=== PATIENT | male | born 1945 | race Caucasian/White ===

== ENCOUNTER 2017-05-19 10:17 | Day surgery (SDC) | payer MEDICARE ==
[~2017-05-19] VITALS: Ht 177.8 cm; Wt 78.4 kg
[2017-05-19 11:01] VITALS: BP 136/87
[2017-05-19] MEDS ORDERED: MELA5TAB19 PO (11:01)
[2017-05-19] MEDS ORDERED: WARF5TAB7 PO (11:01)
[2017-05-19] MEDS ORDERED: M-171CAP PO (11:01)
[2017-05-19] MEDS ORDERED: WARF7.5T6 PO (11:01)
[2017-05-19] MEDS ORDERED: MULT-658 PO (11:01)
[2017-05-19] MEDS ORDERED: ATOR20TA9 PO (11:01)
[2017-05-19] MEDS ORDERED: LACTATED RINGERS 1,000 ML IV SCH ×2 (11:01→14:47)
[2017-05-19] MEDS ORDERED: FENTANYL PF 250 MCG/5ML ONE (12:04)
[2017-05-19] MEDS ORDERED: PROPOFOL 10 MG/ML, 20ML ONE (12:04)
[2017-05-19] MEDS ORDERED: ROCURONIUM 10 MG/ML,10ML ONE (12:04)
[2017-05-19] MEDS ORDERED: NEOSTIGMINE 1 MG/ML, 10ML ONE (12:05)
[2017-05-19] MEDS ORDERED: GLYCOPYRROLATE 0.4 MG/2 ML, 2ML ONE (12:05)
[2017-05-19] MEDS ORDERED: CEFAZOLIN 1,000 MG ONE ×2 (12:06)
[2017-05-19] MEDS ORDERED: SODIUM CHLORIDE 0.9% PF 10ML ONE (12:06)
[2017-05-19] MEDS ORDERED: EPINEPHRINE 1 MG/ML, 1ML ONE (12:55)
[2017-05-19] MEDS ORDERED: BUPIVACAINE/PF 0.5% ONE (12:55)
[2017-05-19] MEDS ORDERED: ACETAMINOPHEN 325 MG TABLET PO PRN (13:00)
[2017-05-19] MEDS ORDERED: FENTANYL PF 100 MCG/2ML IV PRN (13:00)
[2017-05-19] MEDS ORDERED: hydrALAzine 20 MG/ML, 1ML IV PRN (13:00)
[2017-05-19] MEDS ORDERED: MEPERIDINE/PF 25MG/0.5ML IVPush PRN (13:00)
[2017-05-19] MEDS ORDERED: OXYcodone 5 MG/5 ML ORAL.SOL UDC PO PRN (13:00)
[2017-05-19] MEDS ORDERED: LABETALOL 5MG/ML, 20ML IV PRN (13:00)
[2017-05-19] MEDS ORDERED: ONDANSETRON 2MG/ML, 2ML IVPush PRN ×2 (13:00→15:00)
[2017-05-19] MEDS ORDERED: BUPIVACAINE/PF 0.5% INFIL ONE (13:52)
[2017-05-19] MEDS ORDERED: OXYcodone 5 MG/5 ML ORAL.SOL UDC ONE (14:59)
[2017-05-19] MEDS ORDERED: ACETAMINOPHEN 650 MG/20.3 ML UDC ONE (14:59)
[2017-05-19] MEDS ORDERED: PROMETHAZINE 25 MG/ML, 1ML IM PRN (15:00)
[2017-05-19] MEDS ORDERED: morphine SULFATE 10 MG/ML, 1ML IVPush PRN (15:00)
[2017-05-19] MEDS ORDERED: ONDANSETRON 2MG/ML, 2ML ONE (15:02)
[2017-05-19] MEDS ORDERED: PROMETHAZINE 25 MG/ML, 1ML ONE (15:13)
[2017-05-19] MEDS: PROMETHAZINE 25 MG/ML, 1ML IV PRN ×2 (15:15→15:32)
[2017-05-19] MEDS ORDERED: HYDROmorphone 2 MG/ML, 1ML ONE (15:19)
[2017-05-19] MEDS: HYDROmorphone 1 MG/ML, 1ML IV PRN ×2 (15:23→15:36)
[2017-05-19] MEDS ORDERED: SCOPOLAMINE PATCH, 1.5MG PATCH.TD72 TD ONE ×2 (16:00→16:30)
[2017-05-19] MEDS ORDERED: SCOPOLAMINE 1MG PATCH TD ONE (16:00)
== END 2017-05-19 19:05 ==
LOC: OUT 10:17
PROVIDERS: ATTEND Surgery
DX: K40.20 Bilateral inguinal hernia, without obstruction or gangrene, not specified as recurrent (principal); E78.00 Pure hypercholesterolemia, unspecified; E78.5 Hyperlipidemia, unspecified
CPT/HCPCS: 36415; 49505; 85610; 93005; C1781; J0171; J0690; J1170; J2405; J2550; J2704; J2710; J3010; J3490; J7120